=== PATIENT | female | born 1955 | race Caucasian/White ===

== ENCOUNTER 2017-08-10 07:30 | Outpatient (CLI) | payer OTHER | END 2017-08-10 12:36 | disposition home or self-care (01) | LOC: SONOGRAMA 07:30 | DX: E04.1 Nontoxic single thyroid nodule (principal) ==

== ENCOUNTER 2019-02-16 11:06 | Outpatient (CLI) | payer OTHER | END 2019-02-16 11:09 | disposition home or self-care (01) | LOC: RAD 11:06 | DX: G56.03 Carpal tunnel syndrome, bilateral upper limbs (principal) ==

== ENCOUNTER 2022-05-23 01:38 | Emergency (ER) | payer OTHER ==
[~2022-05-23] VITALS: Ht 170.2 cm; Wt 58.5 kg
[2022-05-23] MEDS ORDERED: LEVOTHYROXINE25 MCG PO (01:51)
[2022-05-23] MEDS ORDERED: SYNTHROID50 MCG PO (01:52)
== END 2022-05-23 04:47 ==
LOC: ER 01:38
DX: I49.3 Ventricular premature depolarization (principal); K21.9 Gastro-esophageal reflux disease without esophagitis; Z88.1 Allergy status to other antibiotic agents

== ENCOUNTER 2022-07-12 10:03 | Outpatient (CLI) | payer OTHER ==
[~2022-07-12 10:03] MED LIST: LEVOTHYROXINE25 MCG PO; SYNTHROID50 MCG PO
== END 2022-07-12 10:05 | disposition home or self-care (01) ==
LOC: NUCLEAR 10:03
DX: I34.9 Nonrheumatic mitral valve disorder, unspecified (principal); R00.2 Palpitations

== ENCOUNTER 2024-03-12 08:15 | Outpatient (CLI) | payer OTHER | END 2024-03-12 08:33 | disposition home or self-care (01) | LOC: MRI 08:15 | PROVIDERS: ATTEND Neuromusculoskeletal Medicine & OMM | DX: G44.209 Tension-type headache, unspecified, not intractable (principal); I72.9 Aneurysm of unspecified site; I65.1 Occlusion and stenosis of basilar artery; I65.09 Occlusion and stenosis of unspecified vertebral artery; I65.29 Occlusion and stenosis of unspecified carotid artery; Q28.2 Arteriovenous malformation of cerebral vessels; M50.20 Other cervical disc displacement, unspecified cervical region | CPT/HCPCS: 70544; 70553; 72141; Q9965 ==

== ENCOUNTER 2025-01-28 08:13 | Outpatient (CLI) | payer OTHER | END 2025-01-28 08:15 | disposition home or self-care (01) | LOC: RAD 08:13 | PROVIDERS: ATTEND Internal Medicine Rheumatology | DX: S22.000A Wedge compression fracture of unspecified thoracic vertebra, initial encounter for closed fracture (principal); X58.XXXA Exposure to other specified factors, initial encounter; Y93.9 Activity, unspecified; Y92.9 Unspecified place or not applicable; Y99.9 Unspecified external cause status ==